=== PATIENT | male | born 1950 | race Caucasian/White ===

== ENCOUNTER → 2018-07-17 14:28 | Outpatient (CLI) | payer OTHER, SELFPAY ==
--- NOTE | 2018-07-17 | DI.RAD.S_ITS ---
PROCEDURE: XR CHEST 2V INDICATIONS: CHRONIC COUGH TECHNIQUE: 2 views of the chest were acquired. COMPARISON: None. FINDINGS: Surgical changes and devices: Soft tissue anchors projecting in the left humeral head. Lungs and pleura: No pleural effusions or pneumothorax. Lungs are clear. Scattered atelectasis/scarring. Mediastinum: Mediastinal contours are normal. Heart size is normal. Bones and chest wall: No suspicious bony abnormalities. Soft tissues appear unremarkable. IMPRESSION: No acute consolidation Dictated by: Denny García M.D. on 07/17/2018 at 16:53 Approved by: Denny García M.D. on 07/17/2018 at 16:54
== END ==
PROVIDERS: PCP Internal Medicine; Visit Provider Internal Medicine
DX: R05 Cough (principal)
CPT/HCPCS: 71046

== ENCOUNTER → 2020-09-30 15:06 | Outpatient (ROUT) | payer OTHER, SELFPAY ==
[2020-09-30 16:08] LABS: Blood Urea Nitrogen 20 mg/dL (9-20); Calcium 9.3 mg/dL (8.4-10.2); Carbon Dioxide 33 mmol/L (22-32); Chloride 104 mmol/L (98-107); Estimated Glomerular Filt Rate > 60.0 mL/min (>60); Glucose 90 mg/dL (80-110); HEMOLYSIS < 15 (0-50); Potassium 4.1 mmol/L (3.4-5.1); Sodium 140 mmol/L (137-145)
[2020-09-30 16:24] LABS: Vitamin D 25 Hydroxy (D3) 60.3 ng/mL (30.0-100.0)
[2020-10-02 15:06] LABS: Cholesterol 178 mg/dL (140-199); HDL Cholesterol 58 mg/dL (40-60); LDL Cholesterol Calculated 101 mg/dL (<100); Triglycerides 96 mg/dL (35-150)
== END ==
PROVIDERS: PCP Internal Medicine; Visit Provider Internal Medicine
DX: E78.00 Pure hypercholesterolemia, unspecified (principal); E78.2 Mixed hyperlipidemia; E55.9 Vitamin D deficiency, unspecified
CPT/HCPCS: 80048; 80061; 82306

== ENCOUNTER → 2020-10-08 09:50 | Outpatient (CLI) | payer OTHER, SELFPAY ==
[2020-10-08 11:42] LABS: COVID19 -Nasal RAPID Negative (Negative)
== END ==
PROVIDERS: PCP Internal Medicine; Visit Provider Surgery
DX: Z01.812 Encounter for preprocedural laboratory examination (principal); Z20.828 Contact with and (suspected) exposure to other viral communicable diseases
CPT/HCPCS: 87635; C9803

== ENCOUNTER 2020-10-09 09:26 | Day surgery (SDC) | payer OTHER, SELFPAY ==
[2020-10-09] VITALS (9 sets, daily range): BP systolic 92–129; BP diastolic 60–99; PULSE 63–80; RESP 14–18; TEMP 36.3–36.6; O2SAT 95–97; BMI 21.7
[2020-10-09] MEDS: LACTATED RINGERS 1,000 ML 200 ML IV (10:13)
--- NOTE | 2020-10-09 11:19 | PM.HP.1 ---
History of Present Illness History of Present Illness Date Patient Seen: 10/09/20 Time Patient Seen: 11:19 Chief complaint: SDC Narrative: The patient presents for colorectal sreening. He had a colonoscopy 5 years ago was notable for diverticulosis and benign polyps. No personal history cancer, his mother developed colon cancer. On further history denies any recent gastrointestinal symptoms. No nausea, vomiting, abdominal pain, loss of appetite, unexplained weight loss, change in bowel habits, diarrhea, constipation, melena, hematochezia, or bright red blood per rectum. Patient History Medical History (Updated 10/09/20 @ 11:20 by Greg Sorto MD) ACL (anterior cruciate ligament) tear GERD (gastroesophageal reflux disease) Family & Social History Social History: household members spouse Tobacco & Substance use: Smoking Status Never smoker alcohol intake frequency holiday/special occasion Substance Use Type does not use Meds Home Medications and Allergies Home Medications Medication Instructions Recorded Confirmed Type Calcium 500 + D (D3) 1 tab PO DAILY 10/09/20 10/09/20 History glucosamine-chondroitin [Osteo 2 tab PO DAILY 10/09/20 10/09/20 History Bi-Flex] ipratropium bromide 2 spray INTRANASAL DAILY 10/09/20 10/09/20 History omeprazole 20 mg PO DAILY 10/09/20 10/09/20 History Allergies Allergy/AdvReac Type Severity Reaction Status Date / Time No Known Drug Allergies Allergy Verified 10/09/20 09:46 Review of Systems Review of Systems Narrative: A 10 point review of systems is negative except as noted in the HPI Exam Vital Signs (past 8 hours): - 10/09/20 10:01 Temperature 97.4 F L Pulse Rate 68 Respiratory Rate 16 Blood Pressure 119/75 Pulse Oximetry 97 Oxygen Delivery Method Room Air Narrative Exam Narrative: General-no acute distress, well nourished adult male HEENT-moist mucous membranes, no scleral icterus Neck-supple, no lymphadenopathy Chest- non labored respirations, clear to auscultation bilaterally Cardiac-regular rate no peripheral edema Abdomen-soft, nontender, non distended Extremities-warm, well perfused Neurological-alert and oriented, no focal deficits Assessment & Plan Assessment & Plan narrative: The patient requires colorectal screening and colonoscopy is recommended. Technical details were discussed. Risks, benefits, alternatives explained. Risks including but not limited to myocardial infarction, aspiration, bleeding, pain, missed lesion, incomplete examination, need for further radiographic studies, colonic perforation, and need for major abdominal surgery were discussed. All questions were answered to their satisfaction, and they are in agreement with this plan.
[2020-10-09] MEDS: fentaNYL 250 MCG/5 ML INJ IV (11:25)
[2020-10-09] MEDS: MIDAZOLAM 5 MG/5 ML VIAL IV (11:31)
--- NOTE | 2020-10-09 11:47 | P.OP.ENDO_ITS ---
Operative Date/Time/Diagnoses Date of procedure: 10/09/20 Time of procedure: 11:47 Pre-op diagnosis: Family history of colon cancer, personal history colonic polyps Post-op diagnosis: same Procedure & Clinicians Study performed: Colonoscopy Same procedure as scheduled: Yes Indications: 70-year-old man family history of colon cancer and colonic polyps here for routine screening Surgeon: Greg Sorto Procedure Notes Procedure in detail: Medications: Conscious sedation using 5mg IV midazolam and 150mcg IV of fentanyl The history and physical was performed/updated and the patient is ASA class is 2. The procedure was discussed in detail with the patient. Potential risks complications including infection, bleeding, missed diagnosis, perforation, need for surgery, and were explained. Their questions were answered and informed consent was obtained. Patient was brought to the procedure room and placed standard monitoring equipment. The patient's vital signs were monitored continuously throughout the entire procedure. Prior to starting time-out was performed. The patient was placed in the left lateral recumbent position. Procedural sedation was administered. Examination began with a thorough inspection of the perianal area there was no evidence of fissures, fistulae, external hemorrhoids or cutaneous malignancy. The colonoscopy scope was then placed into the anal canal and was advanced to the cecum, which was identified by the ileocecal valve, the appendiceal orifice and the confluence of the taenia. The scope was then slowly withdrawn examining colon thoroughly in all directions, irrigating it of any res idual stool. Hernández diverticulosis No masses polyps The patient tolerated the procedure well. They will be discharged once criteria are met. The prep was of good/excellent quality. The withdrawl time was 7 minutes. The sedation time was 20 minutes. Specimen(s): none sent Complications: none Impression: Normal colonoscopy Post-procedure Recommendations: Colonscopy in 5 years Disposition: same day surgery
== END 2020-10-09 12:42 | disposition home or self-care (01) ==
PROVIDERS: PCP Internal Medicine; Referring Provider Surgery; Visit Provider Surgery
PROC: 0DJD8ZZ Inspection of Lower Intestinal Tract, Via Natural or Artificial Opening Endoscopic (ICD-10-PCS; CPT 45378; principal; 2020-10-09 10:45)
DX: Z12.11 Encounter for screening for malignant neoplasm of colon (principal); Z86.010 Personal history of colon polyps; Z80.0 Family history of malignant neoplasm of digestive organs; K21.9 Gastro-esophageal reflux disease without esophagitis; K57.30 Diverticulosis of large intestine without perforation or abscess without bleeding
CPT/HCPCS: G0105; 99152; J2250; J3010

== ENCOUNTER → 2021-03-16 09:36 | Outpatient (CLI) | payer OTHER, SELFPAY ==
[2021-03-16 10:26] LABS: COVID19 -Nasal RAPID Negative (Negative)
== END ==
PROVIDERS: PCP Internal Medicine; Visit Provider Surgery
DX: Z20.822 Contact with and (suspected) exposure to COVID-19 (principal)
CPT/HCPCS: 87635; C9803

== ENCOUNTER 2021-03-17 12:00 | Day surgery (SDC) | payer OTHER, SELFPAY ==
[2021-03-17] VITALS (9 sets, daily range): BP systolic 114–127; BP diastolic 68–77; PULSE 62–80; RESP 11–16; TEMP 36.1–36.7; O2SAT 95–99; BMI 22.8
[2021-03-17] MEDS: ACETAMINOPHEN 325 MG TABLET 975 MG PO (13:38)
[2021-03-17] MEDS: GABAPENTIN 300 MG CAPSULE PO (13:38)
[2021-03-17] MEDS: LACTATED RINGERS 1,000 ML 100 ML IV (13:45)
--- NOTE | 2021-03-17 14:23 | PM.PREOP ---
Pre-operative Note Interval Note History & Physical reviewed/Exam performed by Physician: Yes Changes to H&P: No
--- NOTE | 2021-03-17 15:24 | SUR.OPER ---
Supine on padded OR bed, head on pillow, arms secured on padded arm boards at <90 degrees abduction, legs uncrossed, safety belt at thigh, tape over blanket over lower legs.
[2021-03-17] MEDS: CEFAZOLIN 1 GM VIAL 2 GM IV (15:38)
[2021-03-17] MEDS: BUPIVACAINE 0.25% (PF) VIAL 30 ML INJ (15:39)
--- NOTE | 2021-03-17 16:19 | PM.OP.1 ---
Operative Date/Time/Diagnoses Date of procedure: 03/17/21 Time of procedure: 16:19 Pre-op diagnosis: Recurrent right inguinal hernia Post-op diagnosis: same Procedure & Clinicians Procedure: Open repair recurrent right inguinal with mesh Same procedure as scheduled: Yes Indications: Recurrent right inguinal hernia after prior open repair Surgeon: Greg Sorto Anesthesia Type: General Operative Notes Findings: Direct floor defect, no indirect hernia Specimen(s): none sent Estimated Blood Loss (mL): 20 Procedure in detail: The patient was placed supine on the table and bilateral lower extremity compression devices were applied. Anesthesia was induced they were intubated with an LMA and received 2g of Ancef. A time-out was performed. They were prepped and draped in sterile fashion. The right external inguinal ring and the anterior superior iliac crest were identified and marked. 1 finger breath above the inguinal ligament the skin was infiltrated with 0.25% bupivacaine. The skin incision was made here and the subcutaneous tissues were divided with electrocautery exposing the external oblique aponeurosis which was then opened along the direction of its fibers. Using blunt dissection the internal oblique aporneurosis was from the external oblique upper leaflet. Using a kittner the cord was carefully dissected away from the inguinal canal adjacent to the pubic tubercle. There was a large amount of scar tissue from his previous repair as well as mesh that was balled up and adherent to the shelving edge. The cord was 1 unit secondary to the degree of scar tissue. I examined it there was no evidence of a indirect defect but its components were not out. A direct floor defect was identified and it was reduced into the abdomen and the internal oblique aporneuorsis was approximated to the inguinal ligament with Ethibond suture to reapproximate the floor. Made a relaxing incision in the internal oblique. I selected a 7x 15 cm lightweight Pro Loop hernia mesh. The inferior medial aspect of the mesh was anchored to insertion of the rectus muscle to the pubic tubercle such that there was approximately 2 cm of tubercle overlap with Ethibond and then was run continuously along the inferior edge of the mesh to the shelving edge of the inguinal ligament. Interrupted 3 0 Vicryl suture was used to anchor the superior aspect of the mesh to the conjoined tendon in several places. The tails were then reapproximated loosely around the spermatic cord. The tails of the mesh were then tucked under the external oblique aponeurosis. The repair was checked for hemostasis. The wound was irrigated with sterile saline. The external oblique aponeurosis was reapproximated in a running fashion using 3 0 Vicryl. The subcutaneous tissues were reapproximated with 3 0 Vicryl skin closed with 4 0 Monocryl followed by the application of Dermabond. At the end of the operation I ensured that both testicles were within the scrotum. The sponge instrument count at the end operation was correct. The patient emerged from anesthesia was extubated and transferred to the postoperative care unit in stable condition. A total of 30 ml of of 0.25% bupivicaine was used to infiltrate the skin. Complications: none Post-operative Condition: stable Disposition: same day surgery
[2021-03-17] MEDS: OXYCODONE IR 5 MG TABLET PO ×2 (16:21→16:54)
[2021-03-17] MEDS: fentaNYL 100 MCG/2 ML INJ IV ×2 (16:34→17:00)
[2021-03-17] MEDS: HYDROMORPHONE 2 MG INJ IV (16:51)
== END 2021-03-17 17:23 | disposition home or self-care (01) ==
PROVIDERS: PCP Internal Medicine; Referring Provider Surgery; Visit Provider Surgery
PROC: (CPT 49505; principal; 2021-03-17 13:15)
DX: K40.91 Unilateral inguinal hernia, without obstruction or gangrene, recurrent (principal); K21.9 Gastro-esophageal reflux disease without esophagitis; G47.33 Obstructive sleep apnea (adult) (pediatric)
CPT/HCPCS: 49505; C1781; J0690; J1100; J1170; J1885; J2405; J2704; J3010